=== PATIENT | male | born 1965 | race Caucasian/White ===

== ENCOUNTER 2020-03-27 17:10 | Emergency (ER) | payer OTHER, SELFPAY ==
[2020-03-27 17:11] VITALS: BP 170/101; PULSE 104; RESP 16; TEMP 36.9; O2SAT 99; BMI 25.0
[2020-03-27 17:20] VITALS: O2SAT 98
--- NOTE | 2020-03-27 17:20 | EKG12_ITS ---
Test Reason : CP Blood Pressure : / mmHG Vent. Rate : 104 BPM Atrial Rate : 104 BPM P-R Int : 172 ms QRS Dur : 090 ms QT Int : 336 ms P-R-T Axes : 070 045 053 degrees QTc Int : 441 ms Sinus tachycardia Possible Left atrial enlargement Borderline ECG Confirmed by ILYA ORTEGA, TIFFANI ([id number]), editorial assistant ALEKSANDR CASITLLO ([id number]) on 03/29/2020 11:05:22 AM Referred By: NADER Confirmed By:TIFFANI CARABALLO MD
--- NOTE | 2020-03-27 17:35 | RAD_ITS ---
STUDY: X-RAY CHEST REASON FOR EXAM: Male, 54 years old. Patient was sweeping when chest pain started around 1630. TECHNIQUE: Single frontal view of the chest. COMPARISON: None. FINDINGS: Cardiac silhouette unremarkable. Pulmonary vascularity unremarkable. Aorta unremarkable. No focal airspace opacities. No pleural effusions. Upper abdomen unremarkable. Osseous structures intact. No pneumothorax. RAD/Chest 1 View (Portable) IMPRESSION: No acute cardiopulmonary process identified. Electronically Signed: Jessee Carmichael, at 18:06 EST Tel , Service support ,
[2020-03-27 17:36] LABS: Absolute Lymphocyte Count 1.99 X10^3/uL (0.83-4.51); Absolute Neutrophil Count 4.1 X10^3/uL (2.0-7.7); Basophil# 0.02 X10^3/uL; Basophil% 0.3 % (0-1); Eosinophil# 0.36 X10^3/uL; Eosinophils% 5.2 % (0-5); Hematocrit 43.1 % (40-54); Hemoglobin 14.6 g/dL (13.0-16.5); Lymphocyte # 1.99 X10^3/ul (4.0); Lymphocyte % 28.6 % (19-41); Mean Corp Hgb Conc 33.9 g/dL (32-36); Mean Corpuscular Hgb 32.2 pg (27.0-32.0); Mean Corpuscular Volume 94.9 fL (80-94); Mean Platelet Vol. 9.5 fl (6.2-12.0); Monocyte# 0.51 X10^3/uL; Monocyte% 7.3 % (0-10); NRBC Flagged by Analyzer 0 % (0-5); Neutrophil # 4.06 X10^3/uL (2.7-7.7); Neutrophil % 58.3 % (47-70); Platelet Count 312 K/mm3 (150-450); RBC Distribution Width CV 13.2 % (11.6-14.6); RBC Distribution Width SD 45.7 fl (35.1-43.9); Red Blood Count 4.54 M/mm3 (4.6-6.2)
[2020-03-27] MEDS: Aspirin 81 MG TAB.CHEW 162 MG PO (17:47)
--- NOTE | 2020-03-27 17:53 | NURSING ---
CHEMISTRIES AND COAGS HEMOLIZED PER LAB. RN AWARE
--- NOTE | 2020-03-27 18:02 | ED.DCSUM_ITS ---
History of Present Illness Chief Complaint: Chest Pain Informant: Patient Onset: Today Activity at onset: Exertion Timing: Continuous Quality: Sharp Location: Left Chest Worsened By: Breathing Relieved By: Nothing Associated Symptoms: Dyspnea Narrative: Patient is a 54-year-old male with history of asthma and rheumatoid arthritis (on methotrexate) presenting with chest pain. Patient states he was working at the [employer] using a leaf blower and then of vacuum that had a backpack attachment when suddenly he felt pressure on the left side of his chest. States it feels like it is in his lungs. This started around 1630 this afternoon. He sat down and rested with no change in his symptoms. Patient states he is having a hard time finding a position of comfort with the pain. It does not radiate. It does seem to be worse when he lays down. He denies any associated cough, fever or chills. No swelling of his legs. No history of DVT or PE. He does feel short of breath with it. No associated nausea, vomiting or any abdominal symptoms. No other complaints at this time. States he is never had pain like this before. Denies any significant family history of any cardiac disease. Past Medical History - Allergies and Home Meds Allergies/Adverse Reactions: Allergies No Known Allergies Allergy (Verified 03/27/20 17:14) Primary Care Physician: Cinthya Betancourt [employer], [employer] [Primary Care Provider] - Past Medical History: - - Rheumatoid arthritis, asthma Smoking Status: Former smoker Review of Systems General: Denies: Chills, Fever, Sweats Eyes: Denies: Visual changes - bilaterally, Diplopia ENT: Denies: Rhinorrhea, Sore throat Cardiovascular: Reports: Chest pain. Denies: Palpitations Respiratory: Reports: Dyspnea. Denies: Cough, Dyspnea on exertion Gastrointestinal: Denies: Abdominal pain, Nausea, Vomiting, Diarrhea, Melena, Hematochezia Genitourinary: Denies: Dysuria, Hematuria, Frequency Musculoskeletal: Denies: Back pain, Extremity Pain Skin: Denies: Rash, Wounds Neurological: Denies: Headache, Weakness, Numbness Physical Exam Vital Signs/Narrative: Vital Signs Temp Pulse Resp BP Pulse Ox 03/27/20 17:20 98 03/27/20 17:11 98.4 F 104 H 16 170/101 H 99 Inital Vital Signs reviewed: Yes General: Well nourished, Well developed, No Acute Distress Head: Normocephalic, Atraumatic Eyes: Perrl, EOMI ENT: Moist mucous membranes, No rhinorrhea Neck: Supple, Nontender Cardiovascular: Regular rate, Regular rhythm, No murmurs, - - 2+ bilateral radial and DP pulses Respiratory: No distress, CTA bilaterally, Chest nontender. Negative for: Wheezing, Diminished, Decreased Air Movement, Chest tenderness Abdomen: Soft, Nontender, Nondistended, Normal bowel sounds Back: Nontender, Normal Inspection Extremities: Nontender, No edema Skin: Normal color, No rash Neurological: Alert, Oriented x3, Cranial nerves II-XII grossly intact, Normal Strength, Normal Sensation Psychological: Normal affect, Normal Mood Diagnostic/Tx/Re-eval Chest X-Ray - ED: 1 View, Read by ED Physician, Read by Radiologist, No Acute Disease CTA PE Study: No Evidence of PE Clinical Impression(s) from Imaging Studies Chest X-Ray 03/27/20 17:35 IMPRESSION: No acute cardiopulmonary process identified. Electronically Signed: Jessee Carmichael, at 18:06 EST Tel , Service support , Chest CTA 03/27/20 18:55 IMPRESSION: Negative for pulmonary embolus. Mild atherosclerotic changes of the aorta. Normal cardiac size. Trace pericardial effusion. Mild coronary calcifications. Some bibasilar bronchial thickening and nonspecific erratic ground glass changes mostly at the left lung base. Atelectasis versus early pneumonic infiltrate. Negative for pleural effusion. No acute bone findings. No acute findings in the uppermost abdomen. Electronically Signed: Miriam Morris MD at 19:28 EST , Service support , Laboratory Data 03/27/20 03/27/20 03/27/20 17:20 17:20 17:20 WBC 7.0 RBC 4.54 L Hgb 14.6 Hct 43.1 MCV 94.9 H MCH 32.2 H MCHC 33.9 RDW Std Deviation 45.7 H RDW Coeff of Lisa 13.2 Plt Count 312 MPV 9.5 Immature Gran % (Auto) 0.300 Neut % (Auto) 58.3 Lymph % (Auto) 28.6 Pickett % (Auto) 7.3 Eos % (Auto) 5.2 H Baso % (Auto) 0.3 Absolute Neuts (auto) 4.1 Absolute Lymphs (auto) 1.99 Nucleated RBC % 0 D-Dimer Quant (PE/DVT) Cancelled Sodium Cancelled Potassium Cancelled Chloride Cancelled Carbon Dioxide Cancelled Anion Gap Cancelled BUN Cancelled Creatinine Cancelled Estim Creat Clear Calc Cancelled Est GFR (MDRD) Af Amer Cancelled Est GFR (MDRD) Non-Af Cancelled BUN/Creatinine Ratio Cancelled Glucose Cancelled Calcium Cancelled Magnesium Cancelled Troponin I Cancelled B-Natriuretic Peptide 03/27/20 03/27/20 03/27/20 17:20 18:00 18:00 WBC RBC Hgb Hct MCV MCH MCHC RDW Std Deviation RDW Coeff of Lisa Plt Count MPV Immature Gran % (Auto) Neut % (Auto) Lymph % (Auto) Pickett % (Auto) Eos % (Auto) Baso % (Auto) Absolute Neuts (auto) Absolute Lymphs (auto) Nucleated RBC % D-Dimer Quant (PE/DVT) 1.14 H* Sodium 139 Potassium 4.0 Chloride 105 Carbon Dioxide 29.0 Anion Gap 5 BUN 18 Creatinine 1.09 Estim Creat Clear Calc 75.67 Est GFR (MDRD) Af Amer 90 Est GFR (MDRD) Non-Af 74 BUN/Creatinine Ratio 16.5 Glucose 108 H Calcium 8.9 Magnesium 2.0 Troponin I < 0.015 B-Natriuretic Peptide 3.8 - Rhythm Strip Rhythm Strip: Sinus Tach Rate: 104 Ectopy: None - EKG Initial EKG Interpretation: Sinus Tachycardia, - - Tachycardia rate of 104 Normal intervals Normal axis Normal ST segments Follow-up EKG Interpretation: Sinus Rhythm, - - Sinus rhythm at a rate of 100 Normal intervals Normal axis Normal ST segments No change compared to prior EKG Treatment: Aspirin GILDA Risk: Severe Angina </=24 hours Score: 1 - Medical Decision Making Patient is evaluated for sudden onset of chest pain. He appears nontoxic in no acute distress however he does appear anxious and is mildly tachycardic. He does not have any risk factors for PE and was low risk for Wells criteria. D- dimer was obtained which is elevated and a CTA is then obtained. CTA shows nonspecific erratic groundglass changes most of the left lung base with a differential atelectasis versus early pneumonic infiltrate. No pleural effusion is seen. Patient does have a trace pericardial effusion. His troponin is negative. He does not have any changes consistent with ACS on his EKG. Patient does not have worsening pain so repeat EKG is obtained which is negative. Patient is given aspirin in the ER despite improvement of his pain. She was ordered nitroglycerin for worsening chest pain however he did not receive it and his pain was already improving at this point. His pain does appear to be more pleuritic in nature. Patient is low risk per heart score and is offered a delta troponin. He does declined stating his stay for delta troponin. He will follow-up with his primary care doctor. He does have an area of questionable infiltrates on his CTA and will be treated for community-acquired pneumonia. He is given first dose of azithromycin in the ER. In addition he will be tested for Covid and is given quarantine instructions. Patient does state that at his work they have been sprain some chemical that is supposed to kill Covid on surfaces and he thinks that when it started up and irritates his lungs. Is not currently having any wheezing and I do not think steroids are indicated at this time however he is encouraged to stay away from this chemical. Patient is counseled on signs and symptoms requiring return to the emergency room. Patient verbalizes agreement and understand this plan. Patient discharged home in stable and improved condition. ED Disposition - Plan for ED Patient: Disposition: Home or Assisted Living Diagnosis: Pleuritic chest pain, Left lower lobe pneumonia Instructions: ED Chest Pain Pleurisy Prescriptions: Azithromycin 250 mg PO DAILY #4 tab Prescription Printed Referrals: Cinthya Betancourt [employer], [employer] [Primary Care Provider] - Additional Instructions: Please follow-up with your primary care provider for further cardiac evaluation. I suspect your pain is more from inflammation around your lung/an early pneumonia. You will be started on antibiotics for this. Please take the entire course antibiotics. You were tested for Covid today which was come back in the next few days. Until your results return please quarantine and act as if you do have Covid.
[2020-03-27 18:04] LABS: BNP,B-Type NATRIURETIC PEPTIDE 3.8 pg/mL (0-100)
[2020-03-27 18:10] VITALS: BP 162/96; PULSE 105; RESP 19; O2SAT 97
[2020-03-27 18:29] LABS: Anion Gap 5 (5-15); BUN 18 mg/dL (7-18); BUN/Creat Ratio 16.5 RATIO (10-20); Calcium,Total 8.9 mg/dL (8.5-10.1); Chloride 105 mmol/L (98-107); Creatinine, Serum 1.09 mg/dL (0.70-1.30); EST Glomerular Filtration Rate 74 mL/min (>60); Est Glom Filt Rate - Afr Amer 90 mL/min (>60); Estimated Creatinine Clearance 75.67 ml/min; Glucose 108 mg/dL (74-106); Sodium Level 139 mmol/L (136-145)
[2020-03-27 18:35] LABS: D-Dimer Quantitative (DVT/PE) 1.14 FEU/ug/m (0.27-0.49)
--- NOTE | 2020-03-27 18:42 | EKG12_ITS ---
Test Reason : REPEAT Blood Pressure : / mmHG Vent. Rate : 100 BPM Atrial Rate : 100 BPM P-R Int : 188 ms QRS Dur : 094 ms QT Int : 354 ms P-R-T Axes : 058 026 047 degrees QTc Int : 456 ms Normal sinus rhythm Normal ECG Confirmed by ILYA ORTEGA, TIFFANI ([id number]), assistant editor ALEKSANDR CASTILLO ([id number]) on 03/29/2020 11:05:32 AM Referred By: RAQUEL Confirmed By:TIFFANI CARABALLO MD
--- NOTE | 2020-03-27 18:55 | CT_ITS ---
STUDY: CTA CHEST REASON FOR EXAM: Male, 54 years old. elevated d dimer, chest pain x 3 hours RADIATION DOSAGE (If Supplied By Facility): CTDIvol = ( 9.565 ) mGy, DLP = ( 378.69 ) mGycm TECHNIQUE: The examination was performed with the intravenous administration of IV 75mL Isovue-300. Post-processing of the angiographic images was performed, with multiplanar reformation and 3D reconstruction. Individualized dose optimization techniques were used for this CT. COMPARISON: Chest radiograph of 03/27/2020 FINDINGS: Normal enhancement of the main pulmonary artery and right and left pulmonary arteries. Normal enhancement of the bilateral peripheral pulmonary arteries. There is no demonstrated pulmonary embolism. Minimal plaque and mild elongation of the thoracic aorta. There is no demonstrated aortic dissection. Normal cardiac size. Trace pericardial effusion. Minimal coronary calcifications. Normal mediastinum. Normal hilar regions. Some bronchial thickening in the lower lobes and nonspecific erratic groundglass infiltrates mostly at the left lung base. Negative for pleural effusion. Normal chest wall structures. There are degenerative changes of thoracic spine. No acute findings in the uppermost abdomen. CT/CTA Chest W/WO Contrast IMPRESSION: Negative for pulmonary embolus. Mild atherosclerotic changes of the aorta. Normal cardiac size. Trace pericardial effusion. Mild coronary calcifications. Some bibasilar bronchial thickening and nonspecific erratic ground glass changes mostly at the left lung base. Atelectasis versus early pneumonic infiltrate. Negative for pleural effusion. No acute bone findings. No acute findings in the uppermost abdomen. Electronically Signed: Miriam Morris MD at 19:28 EST , Service support ,
[2020-03-27 19:00] VITALS: BP 158/87; PULSE 106; RESP 16; O2SAT 98
[2020-03-27] MEDS: Azithromycin 250 MG Tablet 500 MG PO (19:52)
[2020-03-27] MEDS: Ketorolac 15 MG/ML Vial IV (19:53)
[2020-03-27 19:58] VITALS: BP 159/99; PULSE 109; RESP 18; O2SAT 99
== END 2020-03-27 20:12 | disposition home or self-care (01) ==
PROVIDERS: Emergency Provider Emergency Medicine; PCP Nurse Practitioner
DX: J18.9 Pneumonia, unspecified organism (principal); M06.9 Rheumatoid arthritis, unspecified; J45.909 Unspecified asthma, uncomplicated; Z79.51 Long term (current) use of inhaled steroids; Z79.899 Other long term (current) drug therapy
CPT/HCPCS: 71045; 71275; 80048; 83735; 83880; 84484; 85025; 85379; 87635; 93005; 96374; 99284; A4216; U0003

== ENCOUNTER 2021-06-11 16:21 | Outpatient (CLI) | payer OTHER, SELFPAY ==
--- NOTE | 2021-06-11 16:25 | RAD_ITS ---
EXAM: XR CHEST, 2 VIEWS : 1965 CLINICAL INDICATION: COUGH TECHNIQUE: Frontal and lateral views of the chest. This report was created using [employer] report generation technology. COMPARISON: 03/27/2020 FINDINGS: LUNGS AND PLEURAL SPACES: Unremarkable. No consolidation or edema. No pneumothorax. No effusion. HEART: Unremarkable. Cardiac silhouette not enlarged. MEDIASTINUM: Central airways and mediastinal contour are unremarkable. BONES/JOINTS: Unremarkable. SOFT TISSUES: Unremarkable. RAD/Chest PA and Lateral IMPRESSION: No radiographic evidence of acute cardiopulmonary disease. at 1648 Reported and signed by: Vinay Orourke MD Electronically Signed: Vinay Orourke MD at 16:47 EST ,
[2021-06-11 17:44] LABS: Absolute Lymphocyte Count 1.88 X10^3/uL (0.83-4.51); Absolute Neutrophil Count 4.9 X10^3/uL (2.0-7.7); Basophil# 0.02 X10^3/uL; Basophil% 0.3 % (0-1); Eosinophils% 2.6 % (0-5); Hematocrit 41.4 % (40-54); Lymphocyte # 1.88 X10^3/ul (0.83-4.51); Lymphocyte % 24.5 % (19-41); Mean Corp Hgb Conc 33.8 g/dL (32-36); Mean Corpuscular Hgb 31.4 pg (27.0-32.0); Mean Corpuscular Volume 92.8 fL (80-94); Mean Platelet Vol. 9.2 fl (6.2-12.0); Monocyte# 0.63 X10^3/uL; Monocyte% 8.2 % (0-10); NRBC Flagged by Analyzer 0 % (0-5); Neutrophil # 4.89 X10^3/uL (2.7-7.7); Neutrophil % 63.9 % (47-70); Platelet Count 326 K/mm3 (150-450); RBC Distribution Width CV 12.9 % (11.6-14.6); RBC Distribution Width SD 43.5 fl (35.1-43.9); Red Blood Count 4.46 M/mm3 (4.6-6.2); White Blood Count 7.7 K/mm3 (4.4-11.0)
[2021-06-11 18:02] LABS: ALB/GLOB Ratio 0.9 RATIO (0.9-2.4); AST(SGOT) 20 U/L (15-37); Alanine Aminotransfer ALT/SGPT 45 U/L (16-61); Albumin, Serum 3.8 g/dL (3.2-5.0); Alkaline Phosphatase 124 U/L (45-117); Anion Gap 6 (5-15); BUN 10 mg/dL (7-18); BUN/Creat Ratio 11.4 RATIO (10-20); Calcium,Total 9.2 mg/dL (8.5-10.1); Chloride 103 mmol/L (98-107); Creatinine, Serum 0.88 mg/dL (0.70-1.30); EST Glomerular Filtration Rate 95 mL/min (>60); Est Glom Filt Rate - Afr Amer 115 mL/min (>60); Globulin 4.4 g/dL (2.2-4.2); Glucose 101 mg/dL (74-106); Potassium 4.4 mmol/L (3.5-5.1); Protein, Total 8.2 g/dL (6.4-8.2); Sodium Level 139 mmol/L (136-145)
== END 2021-06-11 23:59 | disposition short-term general hospital (02) ==
LOC: MTLAB 16:24
PROVIDERS: PCP Nurse Practitioner; Referring Provider Internal Medicine; Visit Provider Internal Medicine
DX: R06.02 Shortness of breath (principal); R05.9 Cough, unspecified
CPT/HCPCS: 36415; 71046; 80053; 85025; 85379

== ENCOUNTER 2021-06-12 11:38 | Outpatient (CLI) | payer OTHER, SELFPAY ==
--- NOTE | 2021-06-12 11:54 | CT_ITS ---
STUDY: CTA CHEST REASON FOR EXAM: Male, 55 years old. ELEVATED D DIMER. Shortness of breath on exertion. Recent Covid RADIATION DOSAGE (If Supplied By Facility): CTDIvol = ( 9.93 ) mGy, DLP = ( 366.65 ) mGycm TECHNIQUE: The examination was performed with the intravenous administration of IV 100mL Isovue-370. Post-processing of the angiographic images was performed, with multiplanar reformation and 3D reconstruction. Individualized dose optimization techniques were used for this CT. COMPARISON: Comparison is made with prior study dated 03/27/2020. FINDINGS: Normal enhancement of the main pulmonary artery and right and left pulmonary arteries. Normal enhancement of the bilateral peripheral pulmonary arteries. There is no demonstrated pulmonary embolism. Normal thoracic aorta and visualized great vessels. There is no demonstrated aortic dissection. Normal heart and pericardium. There are visualized mediastinal lymph nodes, which are within normal size limits, and with normal morphology. Normal hilar regions. Normal visualized trachea and bronchi. The lungs are well expanded. Mild degree of increased markings at the lung bases suggestive of mild bibasilar atelectasis. This is essentially unchanged. Normal pleura. Normal chest wall structures. There are degenerative changes of thoracic spine. Normal visualized upper abdomen. CT/CTA Chest W/WO Contrast IMPRESSION: Findings suggestive of mild degree of bibasilar atelectasis. No evidence of pulmonary embolism. Electronically Signed: Osvaldo Márquez MD at 12:58 EST ,
== END 2021-06-12 23:59 | disposition short-term general hospital (02) ==
LOC: CT 11:40
PROVIDERS: PCP Nurse Practitioner; Referring Provider Internal Medicine; Visit Provider Internal Medicine
DX: R79.89 Other specified abnormal findings of blood chemistry (principal); R76.0 Raised antibody titer; Z86.16 Personal history of COVID-19
CPT/HCPCS: 71275; Q9967

== ENCOUNTER → 2021-12-27 | Outpatient (CLI) | payer OTHER, SELFPAY ==
--- NOTE | 2021-12-27 09:11 | CT_ITS ---
STUDY: CT MAXILLOFACIAL SINUSES REASON FOR EXAM: Male, 56 years old. Facial pain, sinus drainage RADIATION DOSAGE (If Supplied By Facility): CTDIvol = ( 33.06 ) mGy, DLP = ( 747.07 ) mGycm TECHNIQUE: The patient was scanned in a multi detector CT scanner. High resolution axial imaging was performed without the administration of intravenous contrast material. Sagittal and coronal images were reconstructed. Individualized dose optimization techniques were used for this CT. COMPARISON: None. FINDINGS: FRONTAL SINUSES: Normal aeration, with minimal mucosal inflammatory disease. ETHMOIDAL SINUSES: Normal aeration, with extensive mucosal inflammatory disease. MAXILLARY SINUSES: Normal aeration, with extensive mucosal inflammatory disease. SPHENOIDAL SINUSES: Normal aeration, with minimal mucosal inflammatory disease but an air-fluid level is present. Ostiomeatal complexes are occluded The right nasal passage is nearly occluded. The visualized osseous structures are normal. The visualized bilateral orbital contents are normal. CT/Sinus/Facial Bone IMPRESSION: Diffuse paranasal sinusitis, particularly in the maxillary and ethmoid sinuses with occlusion of the ostiomeatal complexes. Electronically Signed: Vic Latham MD at 12:08 EDT ,
== END | disposition home or self-care (01) ==
LOC: CT 09:03
PROVIDERS: PCP Nurse Practitioner; Referring Provider Otolaryngology Otolaryngic Allergy; Visit Provider Otolaryngology Otolaryngic Allergy
DX: J32.9 Chronic sinusitis, unspecified (principal)
CPT/HCPCS: 70486

== ENCOUNTER 2022-04-27 07:55 | Day surgery (SDC) | payer OTHER, SELFPAY ==
--- NOTE | 2022-04-27 | COLBX_PTH ---
PATIENT: ZAC GONZALEZ LOC: EN U#:[id number] AGE/SX: 56/M ROOM: RE04/27/[address]: Dr. Favian Ralph DO : 1965 BED: DIS: 04/27/2022 SPEC #: [id number] RECD: 04/27/22 11:51 STATUS: MATTHEW REMichael #: [id number] NIKKO: 04/27/22 00:[address]: Favian Ralph DEPT: SURGICAL PATHOLOGY RECD BY: Jose C Rosales ENTERED: 04/27/22 11:51 SP TYPE: COLON BX OT DR: Cinthya Betancourt, [employer]-C Tissues: Sigmoid colon biopsy Procedures: Surgery Specimen Level IV HEADER OPERATION: Colonoscopy ? open access (MAC) with biopsies PRE-OP DIAGNOSIS: Screening TISSUE SUBMITTED: Sigmoid polyp biopsy MICROSCOPIC DIAGNOSIS Sigmoid polyp, biopsy: Fragments of hyperplastic polyp. SJ:jaquan 04/28/2022 MICROSCOPIC DESCRIPTION Slides are reviewed. GROSS DESCRIPTION Received in fixative is one container labeled with the patient's name and designated sigmoid polyp biopsy. The specimen consists of two irregular fragments of light holland soft tissue that in aggregate measure 0.6 x 0.3 x 0.1 cm. The specimen is totally submitted in one cassette. / SJ:rg 04/27/2022 TC:3 CPT: 98197
[2022-04-27 08:20] VITALS: BP 145/88; PULSE 76; RESP 16; TEMP 36.6; O2SAT 100; BMI 25.2
--- NOTE | 2022-04-27 08:21 | PCM.HP.STD ---
[facility] - General General Date of Admission: 04/27/22 Date of Service: 04/27/22 Chief Complaint: Screening colonoscopy HPI Narrative ZAC GONZALEZ, is a 56 M who presents today for screening colonoscopy. He has past medical history of my mild asthma. He also has a past medical history of rheumatoid arthritis and is on methotrexate. He is not having any abdominal pain. He is not having nausea. He is not having chest pain or shortness of breath. Denies any weakness or fatigue. Overall is in very good health. [facility] Medical History (Updated 04/24/22 @ 11:34 by Rabia Wolfe) Arthritis Asthma Former smoker History of steroid therapy Hydrocele Nasal polyps Rheumatoid arthritis Wears glasses Home Medications albuterol sulfate 90 mcg/actuation aerosol inhaler 2 puff inhalation Q4H PRN PRN Shortness Of Breath 03/27/20 [History Last Taken 04/27/22 07:30] folic acid 1 mg tablet 1 mg PO DAILY 03/27/20 [History Last Taken Unknown] methotrexate sodium 2.5 mg tablet 20 mg PO Q7D 03/27/20 [History Last Taken Unknown] budesonide 0.5 mg/2 mL suspension for nebulization 2 mg inhalation BID PRN PRN Shortness Of Breath Or Wheezing 04/24/22 [History Last Taken Unknown] Allergy/AdvReac Type Severity Reaction Status Date / Time latex Allergy BLISTERING Verified 04/27/22 08:19 Family History (Updated 03/05/22 @ 08:48 by Bernadine Hyatt) Mother Colon polyps Sister Colon polyps Surgical History (Updated 04/24/22 @ 11:34 by Rabia Wolfe) History of colonoscopy History of hydrocelectomy History of tonsillectomy and adenoidectomy Social History Smoking Status: Former smoker ROS Review of Systems ROS Unobtainable: other Constitutional Constitutional: Denies fatigue, fever(s), poor appetite, weight gain or weight loss ENT HEENT: Denies mouth lesions Cardiovascular Cardiovascular: Denies abdominal bloating, abdominal edema or abdominal pain Respiratory/Chest Respiratory/Chest: Denies change in mental status, change in phlegm color, chest congestion or chest tightness Gastrointestinal Gastrointestinal: Denies belching, bloating, change in bowel habits, change in stool character, chewing difficulty, coffee ground emesis, constipation, cramping, diarrhea, dyspepsia, dysphagia, early satiety, excessive flatus, fecal incontinence, heartburn, hematemesis, hematochezia, hemorrhoids, loose stools, melena, nausea, odynophagia, rectal bleeding, tenesmus, vomiting or weight changes Genitourinary Genitourinary: Denies abdominal discomfort, burning urination or itching Musculoskeletal Musculoskeletal: Reports as per HPI; Denies muscle weakness or myalgias Integumentary Integumentary: Denies jaundice Neurologic Neurologic: Denies lack of coordination or weakness Psychiatric Psychiatric: Denies confusion, depression, memory loss, mood swings, paranoia or suicidal ideation Endocrine Endocrinology: Denies systems reviewed and no addt'l complaints, except as documented Hematologic/Lymphatic Hematologic/Lymphatic: Denies anemia, easy bleeding, easy bruising or lymphadenopathy Allergic/Immunologic Allergic/Immunologic: Denies systems reviewed and no addt'l complaints, except as documented Physical Exam Const alert General Appearance: cooperative Orientation / Consciousness: oriented to person HEENT hearing grossly normal bilaterally Head and Scalp: normal to inspection Face and Sinus: face symmetric Nose: external nose normal Mouth: oral and palatal mucosa normal Eyes conjunctivae normal General Eye: normal appearance of both eyes Neck full ROM General: normal visual inspection Lymph Lymphatic: no lymphadenopathy noted Chest inspection of chest normal and palpation of chest normal Chest: symmetrical chest wall rise Resp normal respiratory effort Effort and Inspection: able to speak in complete sentences Cardio regular rate GI non-distended Percussion: normal to percussion Rectal Exam: deferred Neuro Speech: speech normal Gait (Neuro): normal gait Assessment & Plan Assessment/Plan (1) Encounter for screening for malignant neoplasm of colon: PLAN: He will undergo a screening colonoscopy. He was explained alternatives, risk, benefits including not withstanding bleeding, infection, sepsis, perforation, need for emergent surgery and . He will have an ASA of 1.
[2022-04-27] MEDS: Lactated Ringers 1,000 ML 15 ML IV (08:44)
[2022-04-27 10:09] VITALS: BP 127/82; BP 145/88; PULSE 94; RESP 18; TEMP 36.4; O2SAT 98
[2022-04-27 10:10] VITALS: BP 127/82; BP 145/88; PULSE 96; RESP 18; O2SAT 98
--- NOTE | 2022-04-27 10:10 | OP.COLON_ITS ---
Patient Name: Junior Millan Procedure Date: 04/27/2022 9:38 AM Date of : 1965 Age: 56 Procedure: Colonoscopy Indications: Follow-up for history of adenomatous polyps in the colon Providers: Favian Ralph DO Referring MD: Cinthya Betancourt NP Medicines: Monitored Anesthesia Care Patient Profile: This is a 56 year old male. Refer to note in patient chart for documentation of history and physical. Last Colonoscopy: 5 years ago. Complications: No immediate complications. Procedure: Pre-Anesthesia Assessment: - Prior to the procedure, a History and Physical was performed, and patient medications and allergies were reviewed. The risks and benefits of the procedure and the sedation options and risks were discussed with the patient. All questions were answered and informed consent was obtained. Patient identification and proposed procedure were verified by the physician. Mental Status Examination: normal. CV Examination: normal. Prophylactic Antibiotics: The patient does not require prophylactic antibiotics. Prior Anticoagulants: The patient has taken no previous anticoagulant or antiplatelet agents. After reviewing the risks and benefits, the patient was deemed in satisfactory condition to undergo the procedure. The anesthesia plan was to use monitored anesthesia care (MAC). Immediately prior to administration of medications, the patient was re-assessed for adequacy to receive sedatives. The heart rate, respiratory rate, oxygen saturations, blood pressure, adequacy of pulmonary ventilation, and response to care were monitored throughout the procedure. The physical status of the patient was re-assessed after the procedure. After I obtained informed consent, the scope was passed under direct vision. Throughout the procedure, the patient's blood pressure, pulse, and oxygen saturations were monitored continuously. The Colonoscope was introduced through the anus and advanced to the cecum, identified by appendiceal orifice and ileocecal valve. The colonoscopy was performed without difficulty. The patient tolerated the procedure well. The quality of the bowel preparation was good. Moderate Sedation: Moderate (conscious) sedation was personally administered by an anesthesia professional. The following parameters were monitored: oxygen saturation, heart rate, blood pressure, respiratory rate, EKG, adequacy of pulmonary ventilation, and response to care. Total physician intraservice time was 15 minutes. Scope In: 9:47:37 AM Scope Withdrawal Time 0 hours 12 minutes 59 seconds Scope Out: 10:04:16 AM Total Procedure Duration Time 0 hours 16 minutes 39 seconds Findings: The perianal and digital rectal examinations were normal. A 5 mm polyp was found in the sigmoid colon. The polyp was sessile. The polyp was removed with a cold biopsy forceps. Resection and retrieval were complete. Verification of patient identification for the specimen was done. Estimated blood loss was minimal. A few small-mouthed diverticula were found in the recto-sigmoid colon, sigmoid colon, transverse colon and hepatic flexure. Impression: - One 5 mm polyp in the sigmoid colon, removed with a cold biopsy forceps. Resected and retrieved. - Diverticulosis in the recto-sigmoid colon, in the sigmoid colon, in the transverse colon and at the hepatic flexure. Recommendation: - Discharge patient to home. - Resume previous diet. - Continue present medications. - Await pathology results. - Repeat colonoscopy in 5 years for surveillance. - Return to GI office in 1 week. Procedure Code(s): --- Professional --- 64136, Colonoscopy, flexible; with biopsy, single or multiple CPT copyright 2017 [employer]. All rights reserved. The codes documented in this report are preliminary and upon wool fleece sorter review may be revised to meet current compliance requirements. Favian Ralph DO 04/27/2022 10:10:12 AM This report has been signed electronically. Number of Addenda: 0 Note Initiated On: 04/27/2022 9:38 AM
--- NOTE | 2022-04-27 10:11 | OP.CCLET_ITS ---
04/27/2022 Cinthya Betancourt, KE [address] [place] [address] Re : Colonoscopy procedure for Junior Singletonmer Dear Ms. Betancourt This procedure was performed on Wednesday, April 27, 2022. My impressions and recommendations are as follows: Impressions : - One 5 mm polyp in the sigmoid colon, removed with a cold biopsy forceps. Resected and retrieved. - Diverticulosis in the recto-sigmoid colon, in the sigmoid colon, in the transverse colon and at the hepatic flexure. Recommendations : - Discharge patient to home. - Resume previous diet. - Continue present medications. - Await pathology results. - Repeat colonoscopy in 5 years for surveillance. - Return to GI office in 1 week. My findings are described in the full procedure note, which is enclosed. If I can be of further assistance, please feel free to contact me at . Sincerely, Favian Friend, 04/27/2022 10:10:12 AM This report has been signed electronically.
[2022-04-27 10:15] VITALS: BP 139/95; BP 145/88; PULSE 93; RESP 18; O2SAT 97
[2022-04-27 10:18] VITALS: BP 141/91; BP 145/88; PULSE 91; RESP 18; TEMP 36.2; O2SAT 99
[2022-04-27 10:38] VITALS: BP 145/88
== END 2022-04-27 10:43 | disposition home or self-care (01) ==
LOC: EN 07:58 → AC 07:58
PROVIDERS: PCP Nurse Practitioner; Referring Provider Nurse Practitioner; Visit Provider Internal Medicine Gastroenterology
PROC: 0DJD8ZZ Inspection of Lower Intestinal Tract, Via Natural or Artificial Opening Endoscopic (ICD-10-PCS; CPT 45378; principal; 2022-04-27 09:10)
DX: Z12.11 Encounter for screening for malignant neoplasm of colon (principal); M06.9 Rheumatoid arthritis, unspecified; K63.5 Polyp of colon; K57.30 Diverticulosis of large intestine without perforation or abscess without bleeding; J45.909 Unspecified asthma, uncomplicated; Z87.891 Personal history of nicotine dependence; Z79.899 Other long term (current) drug therapy
CPT/HCPCS: 45380; 88305; J7120; J2405

== ENCOUNTER → 2023-03-16 | Outpatient (CLI) | payer OTHER, SELFPAY ==
[2023-03-16 12:32] LABS: ALB/GLOB Ratio 0.9 RATIO (0.9-2.4); AST(SGOT) 14 U/L (15-37); Alanine Aminotransfer ALT/SGPT 25 U/L (16-61); Albumin, Serum 3.5 g/dL (3.2-5.0); Alkaline Phosphatase 106 U/L (45-117); Anion Gap 5 (5-15); BUN 11 mg/dL (7-18); BUN/Creat Ratio 13.2 RATIO (10-20); Calcium,Total 8.7 mg/dL (8.5-10.1); Chloride 109 mmol/L (98-107); Cholesterol 215 mg/dL (200); Creatinine, Serum 0.84 mg/dL (0.70-1.30); EST Glomerular Filtration Rate 100 mL/min (>60); Est Glom Filt Rate - Afr Amer 121 mL/min (>60); Globulin 3.7 g/dL (2.2-4.2); Glucose 97 mg/dL (74-106); High Density Lipoprotein 49 mg/dL; Potassium 4.3 mmol/L (3.5-5.1); Protein, Total 7.2 g/dL (6.4-8.2); Sodium Level 140 mmol/L (136-145); Triglycerides 120 mg/dL; Very Low Density Lipoprotein 24 mg/dL (5-40)
== END | disposition home or self-care (01) ==
LOC: MFPLAB 10:36
PROVIDERS: PCP Nurse Practitioner; Visit Provider Family Medicine
DX: Z13.228 Encounter for screening for other metabolic disorders (principal)
CPT/HCPCS: 36415; 80053; 80061; 83036; 84443

== ENCOUNTER → 2023-08-03 | Outpatient (CLI) | payer OTHER, SELFPAY ==
[2023-08-03 15:41] LABS: Absolute Neutrophil Count 4.3 X10^3/uL (2.0-7.7); Basophil# 0.03 X10^3/uL; Basophil% 0.5 % (0-1); Eosinophil# 0.13 X10^3/uL; Hematocrit 44.2 % (40-54); Hemoglobin 14.7 g/dL (13.0-16.5); Lymphocyte % 23.2 % (19-41); Mean Corp Hgb Conc 33.3 g/dL (32-36); Mean Corpuscular Hgb 32.3 pg (27.0-32.0); Mean Corpuscular Volume 97.1 fL (80-94); Mean Platelet Vol. 8.8 fl (6.2-12.0); Monocyte# 0.46 X10^3/uL; Monocyte% 7.1 % (0-10); NRBC Flagged by Analyzer 0 % (0-5); Neutrophil # 4.31 X10^3/uL (2.7-7.7); Neutrophil % 66.7 % (47-70); Platelet Count 278 K/mm3 (150-450); RBC Distribution Width CV 13.8 % (11.6-14.6); RBC Distribution Width SD 48.6 fl (35.1-43.9); Red Blood Count 4.55 M/mm3 (4.6-6.2); White Blood Count 6.5 K/mm3 (4.4-11.0)
[2023-08-03 16:17] LABS: Hemoglobin A1c 5.2 % (3.8-5.6)
[2023-08-03 16:26] LABS: Microalbumin,Random Urine < 5.0 mg/L (NO RANGE EST.)
[2023-08-03 16:30] LABS: AST(SGOT) 18 U/L (15-37); Alanine Aminotransfer ALT/SGPT 27 U/L (16-61); Albumin, Serum 3.8 g/dL (3.2-5.0); Alkaline Phosphatase 107 U/L (45-117); Anion Gap 5 (5-15); BUN 9 mg/dL (7-18); BUN/Creat Ratio 9.6 RATIO (10-20); Calcium,Total 9.1 mg/dL (8.5-10.1); Chloride 106 mmol/L (98-107); Cholesterol 213 mg/dL (200); Creatinine, Serum 0.94 mg/dL (0.70-1.30); EST Glomerular Filtration Rate 87 mL/min (>60); Est Glom Filt Rate - Afr Amer 106 mL/min (>60); Globulin 3.7 g/dL (2.2-4.2); Glucose 91 mg/dL (74-106); High Density Lipoprotein 62 mg/dL; Potassium 4.2 mmol/L (3.5-5.1); Protein, Total 7.5 g/dL (6.4-8.2); Sodium Level 139 mmol/L (136-145); Triglycerides 108 mg/dL; Very Low Density Lipoprotein 22 mg/dL (5-40)
== END | disposition home or self-care (01) ==
LOC: MTLAB 12:37
PROVIDERS: PCP Family Medicine; Referring Provider Family Medicine; Visit Provider Family Medicine
DX: I10 Essential (primary) hypertension (principal)
CPT/HCPCS: 36415; 80053; 80061; 82043; 82570; 83036; 84443; 85025

== ENCOUNTER → 2024-04-11 | Outpatient (CLI) | payer OTHER, SELFPAY ==
--- NOTE | 2024-04-11 11:49 | RAD_ITS ---
INDICATION: ASTHMA EXAMINATION/TECHNIQUE: X-RAY - XR Chest 2 Views COMPARISON: June 11, 2021 FINDINGS: LINES/DEVICES: None. LUNGS: No consolidation, edema or effusion. No pneumothorax. MEDIASTINUM AND CARDIOVASCULAR STRUCTURES: Cardiac silhouette not enlarged. Central airways and mediastinal contour are unremarkable. BONES AND SOFT TISSUES: Degenerative vertebral changes. RAD/Chest PA and Lateral IMPRESSION: No radiographic evidence of acute cardiopulmonary disease. Electronically Signed: Joseph Hood DO at 10:02 EST ,
== END | disposition home or self-care (01) ==
LOC: MTRAD 11:48
PROVIDERS: PCP Family Medicine
DX: J45.909 Unspecified asthma, uncomplicated (principal)
CPT/HCPCS: 71046

== ENCOUNTER → 2024-09-22 | Outpatient (CLI) | payer OTHER, SELFPAY ==
[2024-09-22 18:00] LABS: Absolute Lymphocyte Count 2.11 X10^3/uL (0.83-4.51); Absolute Neutrophil Count 8.4 X10^3/uL (2.0-7.7); Basophil# 0.04 X10^3/uL; Basophil% 0.3 % (0-1); Eosinophil# 0.14 X10^3/uL; Eosinophils% 1.2 % (0-5); Hematocrit 43.9 % (40-54); Hemoglobin 14.6 g/dL (13.0-16.5); Lymphocyte # 2.11 X10^3/ul (0.83-4.51); Lymphocyte % 18.1 % (19-41); Mean Corp Hgb Conc 33.3 g/dL (32-36); Mean Corpuscular Hgb 33.1 pg (27.0-32.0); Mean Corpuscular Volume 99.5 fL (80-94); Mean Platelet Vol. 8.6 fl (6.2-12.0); Monocyte# 0.74 X10^3/uL; Monocyte% 6.4 % (0-10); NRBC Flagged by Analyzer 0 % (0-5); Neutrophil # 8.36 X10^3/uL (2.7-7.7); Neutrophil % 71.8 % (47-70); Platelet Count 345 K/mm3 (150-450); RBC Distribution Width CV 14.1 % (11.6-14.6); RBC Distribution Width SD 51.3 fl (35.1-43.9); Red Blood Count 4.41 M/mm3 (4.6-6.2); White Blood Count 11.7 K/mm3 (4.4-11.0)
[2024-09-22 18:21] LABS: ALB/GLOB Ratio 1.4 RATIO (0.9-2.4); AST(SGOT) 20 U/L (<=37); Alanine Aminotransfer ALT/SGPT 25 U/L (<=46); Albumin, Serum 4.4 g/dL (3.4-4.8); Alkaline Phosphatase 127 U/L (40-129); Anion Gap 11 (5-15); BUN 15 mg/dL (4-19); BUN/Creat Ratio 16.6 RATIO (10-20); Calcium,Total 9.7 mg/dL (7.6-11.0); Carbon Dioxide 25.6 mmol/L (21.0-32.0); Chloride 101 mmol/L (98-108); Cholesterol 231 mg/dL (<=200); Creatinine, Serum 0.88 mg/dL (0.70-1.20); EST Glomerular Filtration Rate 98 (>60); Globulin 3.2 g/dL (2.2-4.2); Glucose 108 mg/dL (70-99); High Density Lipoprotein 63 mg/dL; Low Density Lipoprotein Calc. 152 mg/dL; Potassium 4.4 mmol/L (3.3-5.1); Protein, Total 7.6 g/dL (5.9-8.4); Sodium Level 137 mmol/L (133-145); Total Bilirubin 0.33 mg/dL (0.00-1.30); Triglycerides 78 mg/dL; Very Low Density Lipoprotein 16 mg/dL (5-40); Vitamin D,25 Hydroxy 49.1 ng/mL (30-100); cholesterol:hdl ratio screen 3.67
== END | disposition home or self-care (01) ==
LOC: MFPLAB 16:36
PROVIDERS: PCP Family Medicine; Referring Provider Family Medicine; Visit Provider Family Medicine
DX: Z12.5 Encounter for screening for malignant neoplasm of prostate (principal); M06.9 Rheumatoid arthritis, unspecified; I10 Essential (primary) hypertension
CPT/HCPCS: 36415; 80053; 80061; 82306; 84153; 84443; 85025; G0103